=== PATIENT | female | born 1940 | race Caucasian/White ===

== ENCOUNTER → 2016-08-26 | Outpatient (CLI) | payer MEDICARE ==
--- NOTE | 2016-08-26 15:30 | RAD ---
Indication right hip pain. A single view of the pelvis was obtained as well as additional AP and frog leg views targeted to the right hip. The history of cortisone injection earlier in the day, prior to obtaining these plain films, has been provided. 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 This is manifested as mild joint space compartment narrowing. No fracture is seen. There is some increased density in the soft tissues about the right hip. This is likely secondary to the referenced steroid injection. No acute bony finding is seen. Degenerative changes are noted in the lower lumbar spine IMPRESSION: No acute finding. Mild degenerative change
== END | disposition home or self-care (01) ==
LOC: DXRAD 14:21
PROVIDERS: ATTEND Anesthesiology Pain Medicine
DX: M16.11 Unilateral primary osteoarthritis, right hip (principal)
CPT/HCPCS: 73502